=== PATIENT | female | born 1980 | race Caucasian/White ===

== ENCOUNTER 2017-05-04 23:37 | Emergency (ER) | payer BC ==
[2017-05-05] MEDS: DIPHENHYDRAMINE 25 MG CAP PO (01:36)
[2017-05-05] MEDS: predniSONE 50 MG TAB PO (01:44)
== END 2017-05-05 03:36 | disposition home or self-care (01) ==
LOC: FTE 23:37
DX: J06.9 Acute upper respiratory infection, unspecified (principal); R21 Rash and other nonspecific skin eruption; I10 Essential (primary) hypertension
CPT/HCPCS: 71010; 99283-25